=== PATIENT | male | born 1950 | race Hispanic/Latino ===

== ENCOUNTER → 2020-09-30 | Outpatient (CLI) | payer OTHER ==
[~2020-09-30] MED LIST: HYDR1POW19 MC; LISI40TA9 PO; MELO-106 PO; METF-444 PO; PRAV20TA4 PO; XALA2.5OS OU
== END | disposition home or self-care (01) ==
LOC: RAH 07:31
PROVIDERS: ATTEND Internal Medicine
DX: I70.0 Atherosclerosis of aorta (principal); Z87.891 Personal history of nicotine dependence
CPT/HCPCS: 76775

== ENCOUNTER → 2024-07-31 | Outpatient (CLI) | payer OTHER ==
[~2024-07-31] MED LIST changes: +LISI40TA15 PO; -LISI40TA9 PO; -PRAV20TA4 PO; +PRAV20TA59 PO
--- NOTE | 2024-07-31 16:48 | HMCIMG ---
KNEE BILATERAL STANDING HISTORY: Lateral knee pain COMPARISON: None TECHNIQUE: 3 images of bilateral knees obtained with weightbearing. FINDINGS: Medial femorotibial joint space narrowing is seen. There is no acute displaced fracture or dislocation. Degenerative changes are seen. IMPRESSION: 1. Findings as described above.
== END | disposition home or self-care (01) ==
LOC: RAH 15:04
PROVIDERS: ATTEND Internal Medicine
DX: M19.91 Primary osteoarthritis, unspecified site (principal); M25.561 Pain in right knee; M25.562 Pain in left knee
CPT/HCPCS: 73565; 73560